=== PATIENT | male | born 1985 ===

== ENCOUNTER 2022-06-29 04:28 | Emergency (ER) | payer BC ==
[2022-06-29] MEDS ORDERED: Ibuprofen 600 MG Tab PO ONE (05:18)
[2022-06-29] MEDS ORDERED: Azithromycin 250 MG Tab PO ONE (05:19)
[2022-06-29 05:27] LABS: CORONAVIRUS COVID-19 NAA NEGATIVE (NEGATIVE); INFLUENZA A NAA NEGATIVE (NEGATIVE); INFLUENZA B NAA NEGATIVE (NEGATIVE); RESPIRATORY SYNCYTIAL VIR NAA NEGATIVE (NEGATIVE)
== END 2022-06-29 05:29 | disposition home or self-care (01) ==
LOC: MW.ED 04:28
DX: J02.0 Streptococcal pharyngitis (principal); H92.03 Otalgia, bilateral
CPT/HCPCS: 0241U; 87651; 99283; A9270